=== PATIENT | male | born 1995 | race Caucasian/White ===

== ENCOUNTER 2017-08-27 00:31 | Emergency (ER) | payer SELFPAY ==
--- NOTE | 2017-08-27 00:36 | ER Report ---
History and Physical Time Seen By MD: 00:36 HPI/ROS CHIEF COMPLAINT: Sinus congestion, headache, vomiting HISTORY OF PRESENT ILLNESS: 21-year-old male presents to the ER complaining of headache and vomiting. He states he began with a sinus infection approximately a week ago. He got some nasty bloody crusty mucus out of his left nasal passage. He felt better after the pressure was relieved. Became gradually worse over the week. Over the last 24 hours. He's had vomiting and diarrhea. Patient denies photophobia or stiff neck. His grams body aches. He now has left ear pain. He's had no drainage of fluid from his left ear. Patient's been using an Neti pot without improvement. REVIEW OF SYSTEMS: Respiratory: No cough, no dyspnea. Cardiovascular: No chest pain, no palpitations. Gastrointestinal: As above Musculoskeletal: No back pain. Allergies: Coded Allergies: coconut (Verified Allergy, Unknown, ANAPHYLAXIS, 11/07/16) Home Meds Active Scripts Promethazine Hcl (PROMETHAZINE HCL) 25 Mg Tablet, 25 MG PO Q4H Y for NAUSEA/ VOMITING, #14 TAB Prov:MALI JAMES DO 08/27/17 Hydrocodone Bit/Acetaminophen (NORCO 5-325 TABLET) 1 Each Tablet, 1 EACH PO Q4H Y for PAIN, #10 TAB Prov:MALI JAMES DO 08/27/17 Cefuroxime Axetil (CEFUROXIME) 500 Mg Tablet, 500 MG PO BID for infection, #14 TAB Prov:MALI JAMES DO 08/27/17 Reviewed Nurses Notes: Yes Old Medical Records Reviewed: Yes Constitutional Vital Sign - Last 24 Hours 08/27/17 08/27/17 08/27/17 08/27/17 00:35 00:36 00:46 01:06 Temp 98.5 Pulse 72 69 64 Resp 18 B/P (MAP) 129/82 (98) 129/82 Pulse Ox 94 96 92 O2 Delivery Room Air 08/27/17 08/27/17 08/27/17 08/27/17 01:21 01:32 01:36 01:59 Pulse 63 57 B/P (MAP) 104/69 (81) Pulse Ox 96 99 O2 Flow Rate 2.0 08/27/17 02:04 Pulse 64 Pulse Ox 98 Physical Exam Vital signs stable, afebrile, tachycardia, pulse ox normal General Appearance: The patient is alert, has no immediate need for airway protection and no current signs of toxicity. Mild distress, slightly pale appearing, skin warm and dry HEENT: Pupils equal and round no injection. TMs, right normal, left with fluid , bulging and injection. There is moderate erythema., Sinus passages are grossly erythematous with purulent drainage and edema Respiratory: Chest is non tender, lungs are clear to auscultation. No wheezing or rails Cardiac: regular rate and rhythm Gastrointestinal: Abdomen is soft and non tender, no masses, bowel sounds normal. Musculoskeletal: Neck: Neck is supple and non tender. No meningismus Extremities have full range of motion and are non tender. Skin: No rashes or lesions. DIFFERENTIAL DIAGNOSIS: After history and physical exam differential diagnosis was considered for headache including but not limited to subarachnoid hemorrhage , migraine headache, tension headache and infectious causes such as meningitis, pharyngitis and sinusitis., Additionally, abdominal pain including but not limited to appendicitis, cholecystitis, gastritis , gastritis, food poisoning, viral syndrome and urinary tract infection. Medical Decision Making Data Points Result Diagram: 08/27/17 0045 08/27/17 0045 Laboratory Hematology Test 08/27/17 00:45 Red Blood Count 5.75 M/uL (4.00-5.60) Mean Corpuscular Volume 84.2 fL (80.0-96.0) Mean Corpuscular Hemoglobin 28.9 pg (26.0-33.0) Mean Corpuscular Hemoglobin Concent 34.3 g/dL (32.0-36.0) Red Cell Distribution Width 13.5 % (11.5-14.5) Mean Platelet Volume 9.6 fL (7.2-11.1) Neutrophils (%) (Auto) 68.3 % (39.4-72.5) Lymphocytes (%) (Auto) 21.4 % (17.6-49.6) Monocytes (%) (Auto) 8.4 % (4.1-12.4) Eosinophils (%) (Auto) 1.3 % (0.4-6.7) Basophils (%) (Auto) 0.6 % (0.3-1.4) Nucleated RBC Relative Count (auto) 0.1 /100WBC Neutrophils # (Auto) 9.1 K/uL (2.0-7.4) Lymphocytes # (Auto) 2.8 K/uL (1.3-3.6) Monocytes # (Auto) 1.1 K/uL (0.3-1.0) Eosinophils # (Auto) 0.2 K/uL (0.0-0.5) Basophils # (Auto) 0.1 K/uL (0.0-0.1) Nucleated RBC Absolute Count (auto) 0.01 K/uL Sodium Level 142 mmol/L (137-145) Potassium Level 3.9 mmol/L (3.5-5.0) Chloride Level 102 mmol/L (98-107) Carbon Dioxide Level 25 mmol/L (22-30) Blood Urea Nitrogen 13 mg/dl (9-21) Creatinine 1.00 mg/dl (0.66-1.25) Glomerular Filtration Rate Calc > 60.0 Random Glucose 99 mg/dl (75-110) Calcium Level 9.5 mg/dl (8.4-10.2) Total Bilirubin 0.3 mg/dl (0.2-1.3) Aspartate Amino Transf (AST/SGOT) 21 U/L (0-35) Alanine Aminotransferase (ALT/SGPT) 36 U/L (0-56) Alkaline Phosphatase 95 U/L (0-126) Total Protein 8.1 gm/dl (6.3-8.2) Albumin 4.4 g/dl (3.5-5.0) Chemistry Test 08/27/17 00:45 White Blood Count 13.3 k/uL (4.5-11.0) Red Blood Count 5.75 M/uL (4.00-5.60) Hemoglobin 16.6 g/dL (14.0-18.0) Hematocrit 48.4 % (42.0-52.0) Mean Corpuscular Volume 84.2 fL (80.0-96.0) Mean Corpuscular Hemoglobin 28.9 pg (26.0-33.0) Mean Corpuscular Hemoglobin Concent 34.3 g/dL (32.0-36.0) Red Cell Distribution Width 13.5 % (11.5-14.5) Platelet Count 222 K/uL (150-450) Mean Platelet Volume 9.6 fL (7.2-11.1) Neutrophils (%) (Auto) 68.3 % (39.4-72.5) Lymphocytes (%) (Auto) 21.4 % (17.6-49.6) Monocytes (%) (Auto) 8.4 % (4.1-12.4) Eosinophils (%) (Auto) 1.3 % (0.4-6.7) Basophils (%) (Auto) 0.6 % (0.3-1.4) Nucleated RBC Relative Count (auto) 0.1 /100WBC Neutrophils # (Auto) 9.1 K/uL (2.0-7.4) Lymphocytes # (Auto) 2.8 K/uL (1.3-3.6) Monocytes # (Auto) 1.1 K/uL (0.3-1.0) Eosinophils # (Auto) 0.2 K/uL (0.0-0.5) Basophils # (Auto) 0.1 K/uL (0.0-0.1) Nucleated RBC Absolute Count (auto) 0.01 K/uL Glomerular Filtration Rate Calc > 60.0 Calcium Level 9.5 mg/dl (8.4-10.2) Total Bilirubin 0.3 mg/dl (0.2-1.3) Aspartate Amino Transf (AST/SGOT) 21 U/L (0-35) Alanine Aminotransferase (ALT/SGPT) 36 U/L (0-56) Alkaline Phosphatase 95 U/L (0-126) Total Protein 8.1 gm/dl (6.3-8.2) Albumin 4.4 g/dl (3.5-5.0) ED Course/Re-evaluation Clinical Indication for ER IV: Hydration, IV Access ED Course Patient was admitted to an examination room. H&P was done. The differential diagnoses was considered. On clinical examination. Patient has no signs of meningismus or photophobia. He has has symptoms consistent with a sinus infection and severe illness. He's having nausea and vomiting. Patient's treated with IV fluid hydration, Zofran, Toradol, and hydrocodone by mouth. His diagnostic studies show mild elevation of white blood cell count of 13,000. Patient will be treated for sinus infection with Ceftin. He'll be given prescriptions for Phenergan and [place] for symptom medical relief. He is advised to continue using the Becky pot, Mucinex D Nasonex. Decision to Disposition Date: Aug 27, 2017 Decision to Disposition Time: 01:11 Depart Departure Latest Vital Signs Vital Signs Date Time Temp Pulse Resp B/P (MAP) Pulse Ox O2 Delivery O2 Flow Rate FiO2 08/27/17 02:04 64 98 08/27/17 01:59 104/69 (81) 08/27/17 01:32 2.0 08/27/17 00:36 98.5 18 Room Air Impression: Primary Impression: Sinusitis Additional Impressions: Left otitis media Vomiting Condition: Improved Disposition: HOME OR SELF-CARE New Scripts Promethazine Hcl (PROMETHAZINE HCL) 25 Mg Tablet 25 MG PO Q4H Y for NAUSEA/VOMITING, #14 TAB Prov: MALI JAMES DO 08/27/17 Hydrocodone Bit/Acetaminophen (NORCO 5-325 TABLET) 1 Each Tablet 1 EACH PO Q4H Y for PAIN, #10 TAB Prov: MALI JAMES DO 08/27/17 Cefuroxime Axetil (CEFUROXIME) 500 Mg Tablet 500 MG PO BID for infection, #14 TAB Prov: ERIKAMALI DO 08/27/17 Patient Instructions: Otitis Media (ED), Sinusitis (ED) Additional Instructions: Take Mucinex D twice daily Take ibuprofen 200 mg 3 tablets 3 times daily Use Nasonex nasal spray Perform nasal irrigations with saline Take antibiotic until gone Follow-up with primary care if unimproved in 3-5 days Problem Qualifiers Primary Impression: Sinusitis Sinusitis location: maxillary Chronicity: acute Recurrence: recurrent Qualified Codes: J01.01 - Acute recurrent maxillary sinusitis Additional Impressions: Left otitis media Otitis media type: suppurative Chronicity: acute Recurrence: not specified as recurrent Spontaneous tympanic membrane rupture: without spontaneous rupture Qualified Codes: H66.002 - Acute suppurative otitis media without spontaneous rupture of ear drum, left ear Vomiting Vomiting type: unspecified Vomiting Intractability: unspecified Nausea presence: unspecified Qualified Codes: R11.10 - Vomiting, unspecified ERIKAMALI DO Aug 27, 2017 00:36
[2017-08-27] MEDS ORDERED: NS(*) 0.9% 1000 ML BAG 1,000 ML IV ONE (00:50)
[2017-08-27] MEDS ORDERED: ONDANSETRON 4 MG/2 ML VIAL IVP ONE (00:50)
[2017-08-27] MEDS ORDERED: fentaNYL CITR 100 MCG/2 ML AMP IVP ONE (00:50)
[2017-08-27] MEDS ORDERED: KETOROLAC 30 MG/ML VIAL IVP ONE (00:50)
[2017-08-27 00:56] LABS: PLATELET COUNT, AUTOMATED 222 K/uL (150-450)
[2017-08-27] MEDS ORDERED: PROM-110 PO (01:27)
[2017-08-27] MEDS ORDERED: HYDR-4309 PO (01:27)
[2017-08-27] MEDS ORDERED: CEFU500T10 PO (01:27)
[2017-08-27] MEDS ORDERED: CEFDINIR 300 MG CAP PO ONE (01:50)
[2017-08-27] MEDS ORDERED: PROMETHAZINE HCL 25 MG TAB TH 2 TAB/BOTTLE PO ONE (01:50)
[2017-08-27] MEDS ORDERED: ACET/HYDROC 5/325MG TH ER ONLY 2 TAB/BOTTLE PO ONE (01:50)
[2017-08-27 01:59] VITALS: BP 104/69
== END 2017-08-27 02:24 | disposition home or self-care (01) ==
LOC: ER 01:03
DX: J01.01 Acute recurrent maxillary sinusitis (principal); H66.002 Acute suppurative otitis media without spontaneous rupture of ear drum, left ear; R11.10 Vomiting, unspecified
CPT/HCPCS: 85025; 96361; 96374; 96375; 99284; J1885; J2405; J3010; J7030; 82040; 82247; 82310; 82374; 82435; 82565; 82947; 84075; 84132; 84155; 84295; 84450; 84460; 84520

== ENCOUNTER 2018-01-11 09:40 | Emergency (ER) | payer OTHER ==
[~2018-01-11 09:40] MED LIST: CEFU500T10 PO; HYDR-4309 PO; OMEP-218 PO; OMEP40CA48 PO; PROM-110 PO; RANI-318 PO; Work Note
[2018-01-11] MEDS ORDERED: NS(*) 0.9% 1000 ML BAG 1,000 ML IV ONE (09:45)
[2018-01-11] MEDS ORDERED: MORPHINE 4 MG/ML SDV IVP ONE (10:00)
[2018-01-11] MEDS ORDERED: ONDANSETRON 4 MG/2 ML VIAL IVP ONE (10:00)
[2018-01-11] MEDS ORDERED: IOPAMIDOL 76% 75 ML INFUS BTL 75 ML ONE (10:02)
--- NOTE | 2018-01-11 10:08 | ER Report ---
History and Physical Time Seen By MD: 10:08 Hx. of Stated Complaint: PT STARTED HAVING MILD ABDOMINAL PAIN YESTERDAY. WOKE UP TODAY WITH SEVERE PAIN. PT CURRENTLY RATES PAIN AT 5 HPI/ROS CHIEF COMPLAINT: Abdominal pain HISTORY OF PRESENT ILLNESS: Patient is a 22-year-old male who presents to the emergency department after being seen by another provider in the internal medicine clinic. Patient states that approximately 8 days ago he began having periumbilical abdominal pain associated with nausea. Over the past 2 days the pain is significantly worsened and has migrated to the right lower quadrant. He denies any fevers or chills. She reports decreased appetite. REVIEW OF SYSTEMS: Constitutional: No fever, no chills. Eyes: No discharge. ENT: No sore throat. Cardiovascular: No chest pain, no palpitations. Respiratory: No cough, no shortness of breath. Gastrointestinal: Right lower quadrant abdominal pain with associated nausea Genitourinary: No hematuria. Musculoskeletal: No back pain. Skin: No rashes. Neurological: No headache. Allergies: Coded Allergies: coconut (Verified Allergy, Unknown, ANAPHYLAXIS, 11/07/16) Home Meds Active Scripts Omeprazole (OMEPRAZOLE) 40 Mg Capsule., 1 CAP PO BID for 30 Days, #60 CAP 0 Refills Prov:LAUREL MORALES DNP, FNP-BC 01/03/18 Ranitidine Hcl (RANITIDINE HCL) 150 Mg Tablet, 1 TAB PO QDAY Y for Abdominal Symptoms, #10 TAB 0 Refills Prov:LAUREL MORALES DNP, FNP-BC 01/03/18 Reported Medications Omeprazole Magnesium (PRILOSEC OTC) 20 Mg Tablet., 1 TAB PO QDAY, TAB 01/03/18 Discontinued Scripts [Work Note] No Conflict Check Patient seen in the office today. Please excuse from work 01/03/18. Prov:LAUREL MORALES DNP, FNP-BC 01/03/18 Smoking Status: Current: Every Day Smoker Constitutional Vital Sign - Last 24 Hours 01/11/18 01/11/18 01/11/18 01/11/18 09:44 09:45 09:55 10:00 Temp 97.7 Pulse 65 63 Resp 18 B/P (MAP) 116/80 (92) 116/80 118/73 (88) Pulse Ox 94 94 01/11/18 01/11/18 01/11/18 01/11/18 10:10 10:25 10:30 10:40 Pulse ??? 49 60 B/P (MAP) 109/72 (84) Pulse Ox 89 95 01/11/18 01/11/18 01/11/18 10:55 11:03 11:10 Pulse 65 B/P (MAP) 126/82 (97) Pulse Ox 97 96 Intake and Output 01/11/18 01/11/18 01/12/18 14:59 22:59 06:59 Intake Total 1000 ml Balance 1000 ml Physical Exam General/Constitutional: Patient is awake, alert, ill-appearing but nontoxic Head: Normocephalic and atraumatic. Eyes: Conjunctival clear, Pupils are equal and reactive to light. Extraocular muscles are intact and symmetrical. Sclera are clear and anicteric. Oropharyngeal: Mucous membranes are moist. There is no pharyngeal erythema or exudate. There are no palatal petechiae. Uvula is midline and symmetrical. Neck: Supple, no adenopathy. Cardiovascular: Heart is regular rate and rhythm without audible murmurs, rubs or gallops. Pulmonary: Lungs are clear to auscultation bilaterally. There are no wheezes, rales, or rhonchi. Chest rise is symmetrical Abdomen: Right lower quadrant abdominal pain. Patient does have a surgical scar to McBurney's area. Extremities: No gross deformities, No peripheral cyanosis. Able to move all 4 extremities. Neuro: Alert and oriented X3, Skin: No rashes, skin is warm dry and well perfused. Medical Decision Making Data Points Result Diagram: 01/11/18 0950 01/11/18 0950 Laboratory Hematology Test 01/11/18 09:50 01/11/18 11:04 Red Blood Count 5.43 M/uL (4.00-5.60) Mean Corpuscular Volume 86.9 fL (80.0-96.0) Mean Corpuscular Hemoglobin 30.5 pg (26.0-33.0) Mean Corpuscular Hemoglobin Concent 35.1 g/dL (32.0-36.0) Red Cell Distribution Width 13.0 % (11.5-14.5) Mean Platelet Volume 10.0 fL (7.2-11.1) Neutrophils (%) (Auto) 59.9 % (39.4-72.5) Lymphocytes (%) (Auto) 24.9 % (17.6-49.6) Monocytes (%) (Auto) 9.1 % (4.1-12.4) Eosinophils (%) (Auto) 5.1 % (0.4-6.7) Basophils (%) (Auto) 1.0 % (0.3-1.4) Nucleated RBC Relative Count (auto) 0.0 /100WBC Neutrophils # (Auto) 4.0 K/uL (2.0-7.4) Lymphocytes # (Auto) 1.7 K/uL (1.3-3.6) Monocytes # (Auto) 0.6 K/uL (0.3-1.0) Eosinophils # (Auto) 0.3 K/uL (0.0-0.5) Basophils # (Auto) 0.1 K/uL (0.0-0.1) Nucleated RBC Absolute Count (auto) 0.00 K/uL Sodium Level 141 mmol/L (137-145) Potassium Level 3.8 mmol/L (3.5-5.0) Chloride Level 106 mmol/L (98-107) Carbon Dioxide Level 25 mmol/L (22-30) Blood Urea Nitrogen 9 mg/dl (9-21) Creatinine 0.80 mg/dl (0.66-1.25) Glomerular Filtration Rate Calc > 60.0 Random Glucose 95 mg/dl (75-110) Calcium Level 9.4 mg/dl (8.4-10.2) Total Bilirubin 0.7 mg/dl (0.2-1.3) Aspartate Amino Transf (AST/SGOT) 23 U/L (0-35) Alanine Aminotransferase (ALT/SGPT) 24 U/L (0-56) Alkaline Phosphatase 66 U/L (0-126) Total Protein 7.2 g/dl (6.3-8.2) Albumin 4.6 g/dl (3.5-5.0) Lipase 32 U/L (23-300) Helicobacter pylori IgG Antibody Negative (NEGATIVE) Urine Color Straw Urine Clarity Clear Urine pH 6.0 pH (4.8-9.5) Urine Specific [place] 1.039 Urine Protein Negative mg/dL (NEGATIVE) Urine Glucose (UA) Negative mg/dL (NEGATIVE) Urine Ketones Negative mg/dL (NEGATIVE) Urine Blood Negative (NEGATIVE) Urine Nitrite Negative (NEGATIVE) Urine Bilirubin Negative (NEGATIVE) Urine Urobilinogen Negative mg/dL (0.2-1.9) Urine Leukocyte Esterase Negative (NEGATIVE) Urine RBC None /HPF (0-2/HPF) Urine WBC <1 /HPF (0-5/HPF) Urine Squamous Epithelial Cells None /LPF (</=FEW) Urine Bacteria Negative /HPF (NONE-FEW) Urine Mucus None /HPF (NONE-FEW) Chemistry Test 01/11/18 09:50 01/11/18 11:04 White Blood Count 6.7 k/uL (4.5-11.0) Red Blood Count 5.43 M/uL (4.00-5.60) Hemoglobin 16.6 g/dL (14.0-18.0) Hematocrit 47.2 % (42.0-52.0) Mean Corpuscular Volume 86.9 fL (80.0-96.0) Mean Corpuscular Hemoglobin 30.5 pg (26.0-33.0) Mean Corpuscular Hemoglobin Concent 35.1 g/dL (32.0-36.0) Red Cell Distribution Width 13.0 % (11.5-14.5) Platelet Count 202 K/uL (150-450) Mean Platelet Volume 10.0 fL (7.2-11.1) Neutrophils (%) (Auto) 59.9 % (39.4-72.5) Lymphocytes (%) (Auto) 24.9 % (17.6-49.6) Monocytes (%) (Auto) 9.1 % (4.1-12.4) Eosinophils (%) (Auto) 5.1 % (0.4-6.7) Basophils (%) (Auto) 1.0 % (0.3-1.4) Nucleated RBC Relative Count (auto) 0.0 /100WBC Neutrophils # (Auto) 4.0 K/uL (2.0-7.4) Lymphocytes # (Auto) 1.7 K/uL (1.3-3.6) Monocytes # (Auto) 0.6 K/uL (0.3-1.0) Eosinophils # (Auto) 0.3 K/uL (0.0-0.5) Basophils # (Auto) 0.1 K/uL (0.0-0.1) Nucleated RBC Absolute Count (auto) 0.00 K/uL Glomerular Filtration Rate Calc > 60.0 Calcium Level 9.4 mg/dl (8.4-10.2) Total Bilirubin 0.7 mg/dl (0.2-1.3) Aspartate Amino Transf (AST/SGOT) 23 U/L (0-35) Alanine Aminotransferase (ALT/SGPT) 24 U/L (0-56) Alkaline Phosphatase 66 U/L (0-126) Total Protein 7.2 g/dl (6.3-8.2) Albumin 4.6 g/dl (3.5-5.0) Lipase 32 U/L (23-300) Helicobacter pylori IgG Antibody Negative (NEGATIVE) Urine Color Straw Urine Clarity Clear Urine pH 6.0 pH (4.8-9.5) Urine Specific [place] 1.039 Urine Protein Negative mg/dL (NEGATIVE) Urine Glucose (UA) Negative mg/dL (NEGATIVE) Urine Ketones Negative mg/dL (NEGATIVE) Urine Blood Negative (NEGATIVE) Urine Nitrite Negative (NEGATIVE) Urine Bilirubin Negative (NEGATIVE) Urine Urobilinogen Negative mg/dL (0.2-1.9) Urine Leukocyte Esterase Negative (NEGATIVE) Urine RBC None /HPF (0-2/HPF) Urine WBC <1 /HPF (0-5/HPF) Urine Squamous Epithelial Cells None /LPF (</=FEW) Urine Bacteria Negative /HPF (NONE-FEW) Urine Mucus None /HPF (NONE-FEW) Urinalysis Test 01/11/18 11:04 Urine Color Straw Urine Clarity Clear Urine pH 6.0 pH (4.8-9.5) Urine Specific [place] 1.039 Urine Protein Negative mg/dL (NEGATIVE) Urine Glucose (UA) Negative mg/dL (NEGATIVE) Urine Ketones Negative mg/dL (NEGATIVE) Urine Blood Negative (NEGATIVE) Urine Nitrite Negative (NEGATIVE) Urine Bilirubin Negative (NEGATIVE) Urine Urobilinogen Negative mg/dL (0.2-1.9) Urine Leukocyte Esterase Negative (NEGATIVE) Urine RBC None /HPF (0-2/HPF) Urine WBC <1 /HPF (0-5/HPF) Urine Squamous Epithelial Cells None /LPF (</=FEW) Urine Bacteria Negative /HPF (NONE-FEW) Urine Mucus None /HPF (NONE-FEW) EKG/Imaging Imaging FACILITY: [facility] - [place] PATIENT NAME: Luis Simms : 1995 MR: [id number] V: [id number] EXAM DATE: ORDERING PHYSICIAN: ASCENCION ESCALERA TECHNOLOGIST: Location: [facility] [place] Patient: Luis Simms : 1995 Visit/Account:[id number] Date of Sevice: 01/11/2018 ABDOMEN/PELVIS WITH CONTRAST HISTORY: Right-sided pain. TECHNIQUE: CT abdomen and pelvis with intravenous contrast. One of the following dose optimization techniques was utilized in the performance of this exam: Automated exposure control; adjustment of the mA and/ or kV according to the patient's size; or use of an iterative reconstruction technique. Specific details can be referenced in the facility's radiology CT exam operational policy. CONTRAST: 75 mL Isovue-370. COMPARISON: None. FINDINGS: Visualized lung bases: Negative. Hepatobiliary: Negative. L bladder is unremarkable. Spleen: Negative. Adrenals: Negative. Pancreas: Negative. Kidneys/: Negative. No visualized urolithiasis or hydronephrosis. No adnexal mass or cyst. GI: Negative. The appendix is not definitively identified however there is no inflammatory changes within the expected region. Vessels/spaces/nodes: Trace free fluid within the pelvis, likely physiologic. No pathologically enlarged lymph nodes identified. There are a few nonspecific borderline prominent inguinal lymph nodes. Bones/soft tissues: Tiny fat-containing paraumbilical hernia. IMPRESSION: 1. No acute findings. Appendix is not definitively identified however there are no inflammatory changes within the expected region. 2. Trace free fluid within the pelvis, likely physiologic. 3. Additional incidental/chronic findings, as above. Report Dictated By: Bahman Buck MD at 01/11/2018 10:42 AM Report E-Signed By: Bahman Buck MD at 01/11/2018 10:48 AM [id number] ED Course/Re-evaluation Clinical Indication for ER IV: Hydration, IV Access ED Course 01/11/2018 10:10:00 am patient with significant tenderness to the right lower quadrant. It is unclear whether the patient had an appendectomy at age 1 but has significant pain at McBurney's point. Plan at this time will be CT scan of the abdomen and pelvis along with abdominal workup. We will give IV Zofran and morphine. Re-evaluation 01/11/2018 10:59:54 am patient improved after IV Zofran and morphine. CT scan shows no acute findings. 01/11/2018 11:24:57 am patient feeling improved at this time. Blood work urinalysis CT scan all unremarkable. Plan at this time I will discharge the patient with prescriptions for Zofran and Reglan. We'll have him schedule a follow-up appointment with Dr. Chopra if symptoms persist over the weekend. Patient further instructed to return if symptoms worsen at any time. Decision to Disposition Date: Jan 11, 2018 Decision to Disposition Time: 11:25 Depart Departure Latest Vital Signs Vital Signs Date Time Temp Pulse Resp B/P (MAP) Pulse Ox O2 Delivery O2 Flow Rate FiO2 01/11/18 11:10 65 96 01/11/18 11:03 126/82 (97) 01/11/18 09:45 97.7 18 Impression: Primary Impression: Abdominal pain Condition: Improved Disposition: HOME OR SELF-CARE Referrals: JONO HAWKINS MD (PCP) DIMITRI ALFREDO MD 2 Days if symptoms persist New Scripts Ondansetron Hcl (ZOFRAN) 4 Mg Tablet 4 MG PO Q8H for Nausea, #15 TAB 0 Refills Prov: ASCENCION ESCALERA MD 01/11/18 Dicyclomine Hcl (DICYCLOMINE HCL) 20 Mg Tablet 20 MG PO QID for cramps, #20 TAB 0 Refills Prov: ASCENCION ESCALERA MD 01/11/18 Patient Instructions: Abdominal Pain (ED) Additional Instructions: If at any time you develop worsening abdominal pain, intractable vomiting or fevers greater than 100.4 you should return for reevaluation in the emergency department immediately. If your symptoms persist over the next 72 hours she should schedule a follow-up appointment with Dr. Chopra, who is our general surgeon. You were provided with his contact information. Problem Qualifiers Primary Impression: Abdominal pain Abdominal location: right lower quadrant Qualified Codes: R10.31 - Right lower quadrant pain ASCENCION ESCALERA MD Jan 11, 2018 10:08
[2018-01-11 10:12] LABS: PLATELET COUNT, AUTOMATED 202 K/uL (150-450)
--- NOTE | 2018-01-11 10:52 | RADIOLOGY IMAGING REPORT ---
FACILITY: [facility] - [place] PATIENT NAME: Luis Simms : 1995 MR: [id number] V: [id number] EXAM DATE: ORDERING PHYSICIAN: ASCENCION ESCALERA TECHNOLOGIST: Location: [facility] - [place] Patient: Luis Simms : 1995 Visit/Account:[id number] Date of Sevice: 01/11/2018 ABDOMEN/PELVIS WITH CONTRAST HISTORY: Right-sided pain. TECHNIQUE: CT abdomen and pelvis with intravenous contrast. One of the following dose optimization techniques was utilized in the performance of this exam: Autom ated exposure control; adjustment of the mA and/or kV according to the patient's size; or use of an i terative reconstruction technique. Specific details can be referenced in the facility's radiology C T exam operational policy. CONTRAST: 75 mL Isovue-370. COMPARISON: None. FINDINGS: Visualized lung bases: Negative. Hepatobiliary: Negative. L bladder is unremarkable. Spleen: Negative. Adrenals: Negative. Pancreas: Negative. Kidneys/: Negative. No visualized urolithiasis or hydronephrosis. No adnexal mass or cyst. GI: Negative. The appendix is not definitively identified however there is no inflammatory changes within the expected region. Vessels/spaces/nodes: Trace free fluid within the pelvis, likely physiologic. No pathologically enla rged lymph nodes identified. There are a few nonspecific borderline prominent inguinal lymph nodes. Bones/soft tissues: Tiny fat-containing paraumbilical hernia. IMPRESSION: 1. No acute findings. Appendix is not definitively identified however there are no inflammatory joo nges within the expected region. 2. Trace free fluid within the pelvis, likely physiologic. 3. Additional incidental/chronic findings, as above. Report Dictated By: Bahman Buck MD at 01/11/2018 10:42 AM Report E-Signed By: Bahman Buck MD at 01/11/2018 10:48 AM [id number]
[2018-01-11] MEDS ORDERED: DICY20TA70 PO (11:28)
[2018-01-11] MEDS ORDERED: ONDA4TAB97 PO (11:28)
[2018-01-11 11:30] VITALS: BP 123/78
== END 2018-01-11 11:32 | disposition home or self-care (01) ==
LOC: ER 09:50
DX: R10.31 Right lower quadrant pain (principal)
CPT/HCPCS: 74177; 81001; 83690; 85025; 86677; 96361; 96374; 96375; 99284; J2270; J2405; J7030; Q9967; 82040; 82247; 82310; 82374; 82435; 82565; 82947; 84075; 84132; 84155; 84295; 84450; 84460; 84520

== ENCOUNTER → 2018-01-19 | Outpatient (CLI) | payer OTHER ==
[~2018-01-19] MED LIST changes: +DICY20TA70 PO; +ONDA4TAB97 PO
== END ==
LOC: LAB 09:35
PROVIDERS: ATTEND Internal Medicine
DX: Z20.820 Contact with and (suspected) exposure to varicella (principal)
CPT/HCPCS: 86694; 86696; 87491; 87591

== ENCOUNTER 2018-02-20 11:16 | Emergency (ER) | payer OTHER ==
--- NOTE | 2018-02-20 11:28 | ER Report ---
History and Physical Time Seen By MD: 11:25 Hx. of Stated Complaint: PT C/O SINUS PRESSURE SINCE SAT. WORSE NOW HPI/ROS CHIEF COMPLAINT: Sinus pain HISTORY OF PRESENT ILLNESS: This is a 22-year-old male who presents to the emergency department for sinus pain and pressure. Patient states that since Monday evening he's had increased sinus pain and pressure significant pressure or pain within the last 2 days with some drainage and postnasal drip. Patient also states he has ear pain and pressure, no nausea or vomiting has had some chills but no fevers. REVIEW OF SYSTEMS: Respiratory: No cough, no dyspnea. Cardiovascular: No chest pain, no palpitations. Gastrointestinal: No vomiting, no abdominal pain. Musculoskeletal: No back pain. ENT: As above. Allergies: Coded Allergies: coconut (Verified Allergy, Unknown, ANAPHYLAXIS, 02/20/18) Home Meds Active Scripts Amoxicillin/Pot Clav 875-125 Mg Tab (AUGMENTIN 875-125 TABLET) 1 Each Tablet, 1 TAB PO Q12H for 7 Days, #14 TAB 0 Refills Prov:HAKAN GARCIA SOLE CONDITIONER-BC 02/20/18 Discontinued Reported Medications Omeprazole Magnesium (PRILOSEC OTC) 20 Mg Tablet.dr, 1 TAB PO QDAY, TAB 01/03/18 Past Medical/Surgical History The patient has a past medical and surgical history of wearing glasses and sinus infections. Smoking Status: Current: Every Day Smoker Hx Substance Use Disorder: No Hx Alcohol Use: Yes (MOD) Constitutional Vital Sign - Last 24 Hours 02/20/18 02/20/18 11:19 12:00 Temp 97.5 Pulse 111 Resp 20 B/P (MAP) 108/69 106/78 (87) Pulse Ox 97 O2 Delivery Room Air Physical Exam General Appearance: The patient is alert, has no immediate need for airway protection and no current signs of toxicity. Eyes: Pupils equal and round no injection. ENT: Cerumen removed from right ear, TMs visualized, landmarks identified, pearly blackburn no injection bilaterally. Inferior turbinate with erythema. Mild erythema to the Posterior oropharynx. Moderate to severe sinus pain to frontal and maxillary sinuses bilaterally however the majority of pain elicited on the left side. Mild anterior cervical chain lymphadenopathy. Respiratory: Chest is non tender, lungs are clear to auscultation. Cardiac: regular rate and rhythm. Gastrointestinal: Abdomen is soft and non tender, no masses, bowel sounds normal. Musculoskeletal: Neck: Neck is supple and non tender. Extremities have full range of motion and are non tender. Skin: No rashes or lesions. DIFFERENTIAL DIAGNOSIS: After history and physical exam differential diagnosis was considered for sinusitis, strep throat, viral syndrome and seasonal allergies. Medical Decision Making ED Course/Re-evaluation ED Course The patient was admitted to room. She was quickly obtained. Differential diag noses were considered. After examination of the patient to determine that he did have acute sinusitis, to give him 800 mg ibuprofen in the emergency department. Patient was sent home with prescription for Augmentin and instructed to follow- up with Dr. Sam the ear pull machine operator for definitive treatment of his recurrent sinusitis. Patient exposed understanding was instructed to take ibuprofen as needed for pain and discomfort. Patient had no other questions or concerns at this time and discharged home. Decision to Disposition Date: Feb 20, 2018 Decision to Disposition Time: 11:46 Depart Departure Latest Vital Signs Vital Signs Date Time Temp Pulse Resp B/P (MAP) Pulse Ox O2 Delivery O2 Flow Rate FiO2 02/20/18 12:00 106/78 (87) 02/20/18 11:19 97.5 111 20 97 Room Air Impression: Primary Impression: Sinusitis Condition: Improved Disposition: HOME OR SELF-CARE Referrals: JONO HAWKINS MD (PCP) RANJITH SAM JR, MD 2 Weeks New Scripts Amoxicillin/Pot Clav 875-125 Mg Tab (AUGMENTIN 875-125 TABLET) 1 Each Tablet 1 TAB PO Q12H for 7 Days, #14 TAB 0 Refills Prov: HAKAN GARCIA-OLIVIA 02/20/18 Patient Instructions: Sinusitis (ED) Additional Instructions: Take the antibiotics as prescribed. Take 800mg Ibuprofen every 8 hours as needed for sinus pain and pressure. Drink plenty of water. Get plenty of rest. Follow up with Dr. Sam the ENT at [facility] for design project manager care. Return to the ED for any other needs or worsening symptoms. Problem Qualifiers Primary Impression: Sinusitis Sinusitis location: pansinusitis Chronicity: acute Recurrence: recurrent Qualified Codes: J01.41 - Acute recurrent pansinusitis HAKAN GARCIA-BC Feb 20, 2018 11:28
[2018-02-20] MEDS ORDERED: IBUPROFEN 800 MG TAB PO ONE (11:45)
[2018-02-20] MEDS ORDERED: AMOX-559 PO (11:47)
[2018-02-20 12:00] VITALS: BP 106/78
== END 2018-02-20 12:07 | disposition home or self-care (01) ==
LOC: ER 11:20
DX: J01.41 Acute recurrent pansinusitis (principal)
CPT/HCPCS: 99283

== ENCOUNTER 2018-11-05 14:39 | Emergency (ER) | payer OTHER ==
[~2018-11-05 14:39] MED LIST changes: +AMOX-559 PO; -HYDR-4309 PO; +HYDR-653 PO
--- NOTE | 2018-11-05 14:43 | ER Report ---
History and Physical Time Seen By MD: 14:42 HPI/ROS CHIEF COMPLAINT: Right hip pain, lower back pain HISTORY OF PRESENT ILLNESS: Patient is a 23-year-old male who reportedly fell from standing onto concrete onto his right side while at work at approximately 10:30. Patient is neurovascularly intact at time of evaluation complaining of significant pain located in his right hip, with mild radiation to the shoulder. Patient is tender on palpation of the right hip. Patient was able to bear weight with discomfort and has full range of motion on passive examination. Capillary refill less than 3 seconds in the distal extremities REVIEW OF SYSTEMS: Constitutional: No fever, no chills. Musculoskeletal: Right hip pain, right lower back pain Skin: No rashes. Neurological: Neurovascular exam intact in the distal lower extremities Allergies: Coded Allergies: coconut (Verified Allergy, Unknown, ANAPHYLAXIS, 02/20/18) Home Meds Discontinued Scripts Amoxicillin/Pot Clav 875-125 Mg Tab (AUGMENTIN 875-125 TABLET) 1 Each Tablet, 1 TAB PO Q12H for 7 Days, #14 TAB 0 Refills Prov:HAKAN GARCIA BASEBALL COACH-BC 02/20/18 Smoking Status: Current: Every Day Smoker Hx Substance Use Disorder: No Hx Alcohol Use: Yes (MOD) Constitutional Vital Sign - Last 24 Hours 11/05/18 14:42 Temp 98.1 Physical Exam General Appearance: The patient is alert, has no immediate need for airway protection and no signs of toxicity. Uncomfortable appearing Eyes: Pupils equal and round no pallor or injection. Neurological: Neurovascular exam intact in the distal lower extremities Skin: Warm and dry, no rashes. Musculoskeletal: Neck is supple non tender. Tenderness on palpation of the right lateral hip with full range of motion on passive range of motion testing, no bony deformity identified, capillary refill less than 2 seconds DIFFERENTIAL DIAGNOSIS: After history and physical exam differential diagnosis was considered for fracture, contusion, sprain, abrasion Medical Decision Making EKG/Imaging Imaging PATIENT NAME: Luis Simms : 1995 MR: [id number] V: [id number] EXAM DATE: [id number] ORDERING PHYSICIAN: NIKI ZAPATA TECHNOLOGIST[place] [facility] [place] : 1995 Visit/Account:[id number] Date of Sevice: 11/05/2018 EXAMINATION: HIP RIGHT HISTORY: Fall. Right hip pain that shoots of back. COMPARISON: None. FINDINGS: AP view of the pelvis and frog-leg lateral view of the right hip are obtained. Bones: Negative. Joint spaces: Negative. Hardware: None. Alignment: Normal. Soft tissues: Negative. IMPRESSION: No acute fracture or dislocation of the right hip. PATIENT NAME: Luis Simms : 1995 MR: [id number] V: [id number] EXAM DATE: [id number] ORDERING PHYSICIAN: NIKI ZAPATA TECHNOLOG[place] [facility] [place] : 1995 Visit/Account:[id number] Date of Sevice: 11/05/2018 EXAMINATION: Lumbar spine radiographs 4 views HISTORY: Fall. Right hip pain that shoots of back. COMPARISON: CT of the abdomen and pelvis from 01/11/2018. FINDINGS: AP, bilateral oblique, and lateral views of the lumbar spine are obtained. Bones: There are 5 nonrib-bearing lumbar type vertebral bodies. Vertebral body heights are maintained. No evidence of acute fracture. Disc spaces: Negative. Posterior elements: Negative. Alignment: Normal. Hardware: None. Soft tissues: Negative. IMPRESSION: No evidence of acute fracture of the lumbar spine. ED Course/Re-evaluation ED Course Patient is a 23-year-old male here status post fall from standing height onto his right side on concrete while at work this morning at approximately 10:30. Patient was given morphine with significant improvement in analgesia. Neurovascular exam intact, capillary refill less than 3 seconds. X-ray imaging of the lumbar spine, pelvis and right hip showed no acute fractures. Patient was given prescription for analgesics, advised to treat primary pain with naproxen, ibuprofen as needed, tramadol for breakthrough pain control. Recommend close PCP follow-up. Return precautions were provided. Decision to Disposition Date: November 05, 2018 Decision to Disposition Time: 16:18 Depart Departure Latest Vital Signs Vital Signs Date Time Temp Pulse Resp B/P (MAP) Pulse Ox O2 Delivery O2 Flow Rate FiO2 11/05/18 14:42 98.1 Impression: Primary Impression: Contusion of hip, right Additional Impression: Back pain Condition: Improved Disposition: HOME OR SELF-CARE Referrals: JONO HAWKINS MD (PCP) New Scripts Tramadol Hcl (TRAMADOL HCL) 50 Mg Tablet 50 MG PO Q6H PRN for PAIN, #12 TAB 0 Refills Prov: NIKI ZAPATA DO 11/05/18 Departure Forms: ER Transition Record, Medications Reconciliation, Off Work/School Form, School or Work Release?: Work Number of days to be released: 3 Patient Portal Information Patient Instructions: Contusion in Adults (ED) Additional Instructions: No acute fractures were identified on x-ray imaging. You may take ibuprofen, naproxen or acetaminophen as needed for primary pain control and you may take 1 tablet tramadol every 6-8 hours as needed for breakthrough pain control. Please follow-up with her family doctor in the next 3-5 days. You may apply ice, rest. Please return promptly if you develop muscle weakness, numbness, bowel or bladder incontinence, worsening pain, nausea, vomiting. Problem Qualifiers NIKI ZAPATA DO November 05, 2018 14:43
[2018-11-05] MEDS ORDERED: MORPHINE 10 MG/ML SYR IM PRN (14:55)
[2018-11-05] MEDS ORDERED: MORPHINE 4 MG/ML SDV IM ONE (15:05)
--- NOTE | 2018-11-05 15:59 | RADIOLOGY IMAGING REPORT ---
FACILITY: [facility] PATIENT NAME: Luis Simms : 1995 MR: [id number] V: [id number] EXAM DATE: ORDERING PHYSICIAN: NIKI ZAPATA TECHNOLOGIST: [place] [facility] [place]: Luis Simms : 1995 Visit/Account:[id number] Date of Sevice: 11/05/2018 EXAMINATION: HIP RIGHT HISTORY: Fall. Right hip pain that shoots of back. COMPARISON: None. FINDINGS: AP view of the pelvis and frog-leg lateral view of the right hip are obtained. Bones: Negative. Joint spaces: Negative. Hardware: None. Alignment: Normal. Soft tissues: Negative. IMPRESSION: No acute fracture or dislocation of the right hip. Report Dictated By: Parveen Brannon MD at 11/05/2018 3:52 PM Report E-Signed By: Parveen Brannon MD at 11/05/2018 3:54 PM WSN:[id number]
--- NOTE | 2018-11-05 16:00 | RADIOLOGY IMAGING REPORT ---
FACILITY: [facility] PATIENT NAME: Luis Simms : 1995 MR: [id number] V: [id number] EXAM DATE: ORDERING PHYSICIAN: NIKI ZAPATA TECHNOLOGIST: Location: [facility] [place] Patient: Luis Simms : 1995 Visit/Account:[id number] Date of Sevice: 11/05/2018 EXAMINATION: Lumbar spine radiographs 4 views HISTORY: Fall. Right hip pain that shoots of back. COMPARISON: CT of the abdomen and pelvis from 01/11/2018. FINDINGS: AP, bilateral oblique, and lateral views of the lumbar spine are obtained. Bones: There are 5 nonrib-bearing lumbar type vertebral bodies. Vertebral body heights are maintaine d. No evidence of acute fracture. Disc spaces: Negative. Posterior elements: Negative. Alignment: Normal. Hardware: None. Soft tissues: Negative. IMPRESSION: No evidence of acute fracture of the lumbar spine. Report Dictated By: Parveen Brannon MD at 11/05/2018 3:48 PM Report E-Signed By: Parveen Brannon MD at 11/05/2018 3:52 PM WSN:[id number]
[2018-11-05] MEDS ORDERED: TRAM-420 PO (16:19)
[2018-11-05 16:50] VITALS: BP 132/85
== END 2018-11-05 16:49 | disposition home or self-care (01) ==
LOC: ER 14:57
DX: S70.01XA Contusion of right hip, initial encounter (principal); M54.5 Low back pain; W18.30XA Fall on same level, unspecified, initial encounter
CPT/HCPCS: 72120; 73502; 96372; 99284; J2270